=== PATIENT | female | born 1990 | race Caucasian/White ===

== ENCOUNTER 2018-09-16 10:36 | Emergency (ER) | payer OTHER ==
[~2018-09-16] VITALS: Ht 162.6 cm; Wt 62.7 kg
[~2018-09-16 10:36] MED LIST: OXYC-302 PO; PREN-2 PO
[2018-09-16] MEDS ORDERED: SODIUM CHLORIDE 0.9% 1,000ML IVBOLUS ONE (11:00)
[2018-09-16] MEDS ORDERED: SODIUM CHLORIDE FLUSH 10ML SYR IVF ONE (11:00)
[2018-09-16] MEDS ORDERED: ONDANSETRON 2MG/ML, 2ML IVPush ONE (11:00)
[2018-09-16] MEDS ORDERED: ONDANSETRON 2MG/ML, 2ML ONE (11:29)
[2018-09-16 11:39] LABS: BASOPHILS # (AUTO) 0.02 x10^3/uL (0-0.1); BASOPHILS % (AUTO) 0 % (0-1); EOSINOPHILS % (AUTO) 0 % (1-7); LYMPHOCYTES # (AUTO) 0.35 x10^3/uL (1-3.4); LYMPHOCYTES % (AUTO) 5 % (22-44); MD NO; MEAN CORPUSCULAR HEMOGLOBIN 29.2 pg (27.0-34.8); MEAN CORPUSCULAR HGB CONC 34.1 g/dL (32.4-35.8); MEAN CORPUSCULAR VOLUME 85.9 fL (80-100); MONOCYTES # (AUTO) 0.36 x10^3/uL (0.2-0.8); MONOCYTES % (AUTO) 5 % (2-9); NEUTROPHILS # (AUTO) 6.01 x10^3/uL (1.8-6.8); NEUTROPHILS % (AUTO) 89 % (42-75); PLATELET COUNT 197 x10^3/uL (130-400); RED BLOOD COUNT 4.81 x10^6/uL (3.82-5.3); RED CELL DISTRIBUTION WIDTH 12.9 % (9.6-15.2)
[2018-09-16 11:50] LABS: ALANINE AMINOTRANSFERASE 17 U/L (12-78); ALBUMIN 3.8 g/dL (3.4-5.0); ANION GAP 6 mmol/L (5-15); CALCIUM 8.4 mg/dL (8.5-10.1); CHLORIDE 110 mmol/L (98-107); CREATININE 0.86 mg/dL (0.55-1.02)
[2018-09-16 11:53] LABS: ALKALINE PHOSPHATASE 45 U/L (45-117); BILIRUBIN,TOTAL 0.7 mg/dL (0.2-1.0); TOTAL PROTEIN 6.9 g/dL (6.4-8.2)
[2018-09-16] MEDS ORDERED: KETOROLAC 30 MG/1 ML ONE (12:59)
[2018-09-16] MEDS ORDERED: PROMETHAZINE 25 MG/ML, 1ML ONE (12:59)
[2018-09-16] MEDS ORDERED: KETOROLAC 30 MG/1 ML IVPush ONE (13:00)
[2018-09-16] MEDS ORDERED: PROMETHAZINE 25 MG/ML, 1ML IM ONE (13:00)
--- NOTE | 2018-09-16 13:07 | NUR ---
TASK RN: PT MED NOTED FOR BLACK PAIN 02/20. URINE COLLECTED AND SENT TO LAB. CALL LIGHT W/I REACH
[2018-09-16 13:28] LABS: CULTURE INDICATED? YES; MICROSCOPIC INDICATED
--- NOTE | 2018-09-16 13:40 | NUR ---
CARE FOR DC ONLY PROVIDED. PT LAYING ON GURNEY, NO ACUTE DISTRESS NOTED. PT STATES "FEELING BETTER" IV DC'D WITH CANNULA INTACT. REVIEWED DC INSTRUCTIONS WITH PT, UNDERSTANDING VERBALIZED. PT LEFT AMB, GAIT STEADY.
[2018-09-16 13:42] VITALS: BP 94/53
== END 2018-09-16 13:44 | disposition home or self-care (01) ==
LOC: ED 12:31
DX: R10.11 Right upper quadrant pain (principal); R10.13 Epigastric pain; R11.2 Nausea with vomiting, unspecified
CPT/HCPCS: 36415; 76700; 80053; 81001; 83690; 84703; 85025; 87086; 96361; 96372; 96374; 96375; 99284; J1885; J2405; J2550; J7030

== ENCOUNTER 2018-09-26 09:19 | Outpatient (CLI) | payer OTHER | END 2018-09-26 23:59 | disposition home or self-care (01) | LOC: CFH 09:19 | PROVIDERS: ATTEND Physician Assistant | DX: R92.2 Inconclusive mammogram (principal); N64.4 Mastodynia; Z80.3 Family history of malignant neoplasm of breast | CPT/HCPCS: 76641; 77066; G0279; 77063 ==

== ENCOUNTER 2021-06-02 09:05 | Day surgery (SDC) | payer OTHER ==
[~2021-06-02] VITALS: Ht 162.6 cm; Wt 61.6 kg
[~2021-06-02 09:05] MED LIST changes: +BUPIVACAINE/PF 0.5% ONE; +EPINEPHRINE 1 MG/ML, 1ML ONE; -OXYC-302 PO; +OXYC1TAB12 PO
[2021-06-02] MEDS ORDERED: NONE PER PT (09:47)
[2021-06-02 09:52] LABS: HCG UR SG 1.006 (1.003-1.030)
[2021-06-02] MEDS ORDERED: CHLORHEXIDINE 15 ML UDC ONE (09:54)
[2021-06-02] MEDS ORDERED: LACTATED RINGERS 1,000 ML IV SCH (10:00)
[2021-06-02 10:08] VITALS: BP 130/79
[2021-06-02] MEDS ORDERED: CHLORHEXIDINE 15 ML UDC PO ONE (10:30)
[2021-06-02] MEDS ORDERED: HYDR-2214 PO (12:09)
[2021-06-02] MEDS ORDERED: MIDAZOLAM 1 MG/ML, 2ML ONE (12:10)
[2021-06-02] MEDS ORDERED: FENTANYL PF 250 MCG/5ML ONE (12:10)
[2021-06-02] MEDS ORDERED: ONDANSETRON 2MG/ML, 2ML ONE (12:34)
[2021-06-02] MEDS ORDERED: CEFAZOLIN 1,000 MG ONE (12:34)
[2021-06-02] MEDS ORDERED: DEXAMETHASONE 4 MG/ML, 1ML ONE (12:34)
[2021-06-02] MEDS ORDERED: PROPOFOL 10 MG/ML, 20ML ONE (12:34)
[2021-06-02] MEDS ORDERED: FENTANYL PF 100 MCG/2ML IV PRN (13:00)
[2021-06-02] MEDS ORDERED: LORazepam 2 MG/ML, 1ML IVPush PRN (13:00)
[2021-06-02] MEDS ORDERED: MEPERIDINE/PF 25MG/0.5ML IVPush PRN (13:00)
[2021-06-02] MEDS ORDERED: PROMETHAZINE 25 MG/ML, 1ML IVPush PRN (13:00)
[2021-06-02] MEDS ORDERED: METHOCARBAMOL 1,000 MG in DEXTROSE 5% 100 ML IV PRN (13:00)
[2021-06-02] MEDS ORDERED: HYDROmorphone 1 MG/ML, 1ML INJ IVPush PRN (13:00)
[2021-06-02] MEDS ORDERED: HYDROcodone/APAP 7.5-325MG/15ML UDC PO PRN (13:00)
[2021-06-02] MEDS ORDERED: ONDANSETRON 2MG/ML, 2ML IVPush PRN (13:00)
[2021-06-02] MEDS ORDERED: DIPHENHYDRAMINE 50 MG/ML, 1ML IVPush PRN (13:00)
== END 2021-06-02 14:15 | disposition home or self-care (01) ==
LOC: OUT 09:05
PROVIDERS: ATTEND Surgery
DX: K42.9 Umbilical hernia without obstruction or gangrene (principal); F32.9 Major depressive disorder, single episode, unspecified; Z20.822 Contact with and (suspected) exposure to COVID-19; Z79.899 Other long term (current) drug therapy
CPT/HCPCS: 49585; 81025; 87635; J0171; J0690; J1100; J2250; J2405; J2704; J3010; J7120